=== PATIENT | male | born 1945 | race Caucasian/White ===

== ENCOUNTER 2017-09-19 05:35 | Inpatient (IN) | payer MEDICARE ==
[~2017-09-19] VITALS: Ht 182.9 cm; Wt 85.7 kg
[2017-09-19 05:42] VITALS: BP 178/95
[2017-09-19 06:41] LABS: ABSOLUTE EOSINOPHILS 0.1 thou/uL (0.0-0.7); ABSOLUTE LYMPHOCYTES 1.8 thou/uL (0.8-5.3); ABSOLUTE MONOCYTES 0.8 thou/uL (0.0-1.2); ABSOLUTE NEUTROPHILS 7.8 thou/uL (1.6-8.1); BASOPHILS 0.4 %; EOSINOPHILS 0.7 %; HEMATOCRIT 48.3 % (42.0-52.0); HEMOGLOBIN 16.2 gm/dL (14.0-18.0); LYMPHOCYTES 16.9 %; MCH 31.4 pg (26.0-34.0); MCHC 33.7 g/dL (28.0-37.0); MCV 93.1 fL (80.0-100.0); MONOCYTES 7.6 %; NUCLEATED RBCS 0 /100WBC; PLATELET COUNT* 120 thou/uL (150-400); POLYS 74.4 %; RBC 5.18 mil/uL (4.50-6.00); RDW-CV 15.1 % (10.5-14.5); WBC 10.5 thou/uL (4.0-11.0)
[2017-09-19 06:51] LABS: ANION GAP 10 mmol/L (7-16); BUN 17 mg/dL (7-18); CALCIUM 9.1 mg/dL (8.5-10.1); CHLORIDE 101 mmol/L (98-107); CO2 24 mmol/L (21-32); CREATININE 1.1 mg/dL (0.6-1.3); GLUCOSE 83 mg/dL (70-99); POTASSIUM 4.2 mmol/L (3.5-5.1); SODIUM 135 mmol/L (136-145)
[2017-09-19 06:52] LABS: APTT 27.9 Seconds (25.0-31.3); INR 1.8; PROTIME 17.8 Seconds (9.20-11.50)
[2017-09-19 07:01] LABS: ALBUMIN 3.2 g/dL (3.4-5.0); ALKALINE PHOSPHATASE 75 U/L (46-116); LIPASE 83 U/L (73-393); NT-PRO BRAIN NAT PEPTIDE 264 pg/mL (<300); SGOT 14 U/L (15-37); SGPT 26 U/L (30-65); TOTAL BILIRUBIN 1.4 mg/dL (<0.1-1.0); TOTAL PROTEIN 6.8 g/dL (6.4-8.2); TROPONIN-I LEVEL <0.06 ng/mL (<0.06)
[2017-09-19 07:54] VITALS: BP 142/67
--- NOTE | 2017-09-19 08:37 | EKG ---
[place] [address] ELECTROCARDIOGRAM REPORT Name: ANNETTE NANCE Room: [address] IN [facility].#: [id number] Admission: 09/19/17 Attend Phys: Annette Guardado MD Discharge: Date of : 45 Report #: [id number] THIS REPORT FOR: //name// [facility] ED Test Date: 2017-09-19 Test Time: 05:42:53 Pat Name: ANNETTE NANCE Department: Room: Gender: Freelance Writer: 9 : 1945 Requested By: Gibson Cancino Order Number: [id number] MD: Yayo Lovelace Measurements Intervals [place] Rate: 100 P: 85 [place]: 168 QRS: 269 QRSD: 91 T: 76 QT: 329 QTc: 425 Interpretive Statements Sinus tachycardia Biatrial enlargement, possible Borderline ST depression, diffuse leads Artifact in lead(s) II,III,aVR,aVL,aVF,V1,V2,V3,V4,V5,V6 and baseline wander in lead(s) V2 No previous ECG available for comparison Electronically Signed On 09-19-2017 8:37:34 CDT by Yayo Lovelace [email or web address] <ELECTRONICALLY SIGNED> By: Yayo Lovelace MD, FACC 09/19/17 0837 [id number] Yayo Lovelace MD, FAC /EPI
[2017-09-19] MEDS ORDERED: NEURONTIN600 MG PO (09:56)
[2017-09-19] MEDS ORDERED: CARVEDILOL12.5 MG PO (09:56)
[2017-09-19] MEDS ORDERED: GENERLAC10 GM/15 M PO (09:56)
[2017-09-19] MEDS ORDERED: ASPIR 8181 MG PO (09:57)
[2017-09-19] MEDS ORDERED: VITAMIN D400 UNIT PO (09:58)
[2017-09-19] MEDS ORDERED: SINGULAIR 10 MG10 M1 PO (09:59)
[2017-09-19] MEDS ORDERED: ADVAIR 500-501 EACH INH (09:59)
[2017-09-19] MEDS ORDERED: FOLIC ACID1 MG PO (09:59)
[2017-09-19] MEDS ORDERED: VALIUM5 MG PO (09:59)
[2017-09-19] MEDS ORDERED: ZOCOR20 MG PO (10:00)
[2017-09-19] MEDS ORDERED: LISINOPRIL20 MG PO (10:00)
[2017-09-19] MEDS ORDERED: PROAIR HFA8.5 GM INH (10:01)
[2017-09-19] MEDS ORDERED: PREDNISONE 10 M10 MG PO (10:02)
[2017-09-19] MEDS ORDERED: ALBUTEROL2.5 MG/31 INH (10:02)
[2017-09-19] MEDS ORDERED: IPRATROPIU0.2 MG/1 M INH (10:02)
[2017-09-19 16:00] VITALS: BP 116/66
--- NOTE | 2017-09-19 17:45 | NUR ---
PT UP TO UNIT THIS AFTERNOON. PT UP AD ROJELIO IN ROOM. PT SOA WITH EXERTION. SATS IN UPPER 90S ON RA
[2017-09-19 20:00] VITALS: BP 133/75
[2017-09-19 23:49] VITALS: BP 147/81
--- NOTE | 2017-09-20 05:48 | NUR ---
A&O X4 CALM COOPERITVE. MED/SURG STATUS. RA. ADLIB IN ROOM. SOA REPORTED, BREATHING TREAMENT GIVEN WITH RELIEF NOTED. DENIES PAIN. SEE MAR. SEE CHARTING. VITALS WNL. HOURLY ROUNDING FOR SAFETY.
[2017-09-20 07:50] VITALS: BP 117/87
--- NOTE | 2017-09-20 10:40 | NUR ---
RECEIVED REPORT AND ASSUMED CARE AT 0730. VSS. PT ON RA, UP AD ROJELIO IN ROOM. PT REPORTED PAIN WITH NO SPECIFIC LOCATION, REFUSED ANY PAIN MEDICATION OR RELIEF OPTIONS. ASSESSMENT COMPLETED CHARTED. PT SCHEDULED FOR CXR, DISCUSSED PLAN OF CARE WITH PT, VERBALIZED UNDERSTANDING. PT PREVIOUS IV INFILTRATED, IV D/C. NEW IV STARTED. BED IN LOWEST POSITION. CALL LIGHT WITHIN REACH. WILL CONTINUE TO MONITOR FOR REMAINDER OF THE SHIFT
[2017-09-20 15:34] VITALS: BP 130/70
--- NOTE | 2017-09-20 16:28 | NUR ---
PT IN PLEASANT MOOD TODAY. PT UP AD ROJELIO IN ROOM, ON RA, VSS. PT AMBULATED IN THE HALLWAYS FOR 1 LAP OF THE UNIT IN THE MORNING AND AFTERNOON. UA AND SPUTUM SAMPLES GIVEN AND TAKEN TO LAB. PT DENIES ANY COMPLAINTS OF PAIN. BED IN LOWEST POTSITION AND LOCKED, CALL LIGHT WITHIN REACH. PT PROGRESSING TOWARDS GOALS. WILL CONTINUE TO MONITO FOR THE REMAINDER OF THE SHIFT.
[2017-09-20 19:50] VITALS: BP 138/58
[2017-09-20 21:40] VITALS: BP 132/72
--- NOTE | 2017-09-20 22:14 | NUR ---
RECEIVED PATIENT IN TRANSFER FROM 204 AFTER VERBAL REPORT FROM KYLIE ALLISON. PATIENT ARRIVED AT 2140 BY WHEELCHAIR IN STABLE CONDITION. ALERT AND ORIENTED X 4. UP WITH STEADY GAIT INDEPENDENTLY IN THE ROOM. NOTING AUDIBLE WHEEZING ON ARRIVAL. PATIENT DID REQUEST PRN BREATHING TREATMENT AND RT DID PROVIDE. ORIENTED TO BED CONTROLS, TV REMOTE, PHONE, ROOM AND FLOOR ROUTINES. HS SNACK PROVIDED. CONDITION STABLE. ARRIVAL VITAL SIGNS STABLE. CONTINUE TO MONITOR.
[2017-09-21 00:40] VITALS: BP 122/74
[2017-09-21 04:58] LABS: CALCIUM 8.7 mg/dL (8.5-10.1); CREATININE 1.1 mg/dL (0.6-1.3); POTASSIUM 4.3 mmol/L (3.5-5.1)
[2017-09-21 08:15] VITALS: BP 147/85
--- NOTE | 2017-09-21 11:54 | NUR ---
SW met with pt to complete initial assessment, introduce self, and SW role. Pt hard of hearing, alert and oriented, pleasant. Pt lives home alone and says that his is "very independent" and "stubborn" and when asked about support system, pt said "myself". Pt says that he has a son who lives in the [facility]. Pt does not have any DME, hx of HH or SNF. Pt explained that he is hopeful to dc independent and is aware of potential oxygen need. SW to continue to follow to assist with safe dc planning.
[2017-09-21 16:00] VITALS: BP 165/76
--- NOTE | 2017-09-21 18:51 | NUR ---
ALERT AND ORIENTED X4. UP AD ROJELIO IN ROOM. IV IS PATENT AND SALINE LOCKED. PAIN BEING MANAGED WITH PO MEDICATION. DENIES NAUSEA. TOLERATING DIET. RECIEVING BREATHING TREATMENTS. VSS ON ROOM AIR. HOURLY ROUNDS HAVE BEEN MAINTAINED THROUGHOUT SHIFT. CALL LIGHT IS WITHIN REACH. NURSING WILL CONTINUE TO MONITOR.
[2017-09-21 19:45] VITALS: BP 146/82
--- NOTE | 2017-09-22 00:11 | NUR ---
PT CALLED OUT REPORTED SOB, THIS NURSE AT BEDSIDE, O2 SAT OBTAINED IN HIGH 90'S ON RA; PT REPORTS HE ISN'T BETTER; STATED "THERE ISN'T ANY POINT TO BE IN THIS [facility] IF YOU AREN'T ANY BETTER THAN YOU WERE ON THURSDAY"; WILL REPORT TO HIS PRIMARY RN
[2017-09-22 00:29] VITALS: BP 179/74
--- NOTE | 2017-09-22 02:30 | NUR ---
REASSESSMENT AT BEDSIDE AFTER PATIENT CALLED OUT FOR SHORTNESS OF AIR AT 0011. O2 SAT AT 96%. CONTINUES TO HAVE DIMINISHED LUNG SOUNDS WITH SOME WHEEZING. PATIENT STILL UPSET. STATING LAST RT TREATMENT DIDN'T HELP. PATIENT WORDS ANGRY. ATTEMPTED TO WORK THROUGH ANGER/ANXIETY WITHOUT SUCCESS. CALL TO DR. KEMP AT 0023. UPDATED ON CURRENT STATUS. NEW ORDERS. PRN VALIUM PROVIDED AND STAT EXTRA RT TREATMENT. CXR COMPLETED AT BEDSIDE. 0124 CXR RESULTS WITHOUT ADDITIONAL FINDINGS. STAT RT TREATMENT SOMEWHAT HELPFUL. 0125 PROVIDED BENADRYL FOR ANXIETY/SLEEP. PATIENT SITTING UP BEDSIDE EATING CHIPS. PATIENT HAD HIS HOME MED LIST OUT AND STATED HE WISHED HE WAS GETTING HIS HOME MEDS. REVIEWED LIST AGAINST ORDERED MEDICATIONS. REASSUSRED PATIENT ALL OF HIS HOME MEDS WERE IN FACT ORDERED AND HAD BEEN PROVIDED. 0205 PATIENT IN BED, EYES CLOSED, BREATHING UNLABORED AND APPEARS TO BE SLEEPING WITHOUT DISTRESS. CONTINUE TO MONITOR.
[2017-09-22 09:00] VITALS: BP 170/82
--- NOTE | 2017-09-22 12:07 | NUR ---
Pt now on room air; no supplemental oxygen needed. Pt son possibly to visit today during some time off of work. Pt face sheet indicated pt was homeless but pt lives in [place] and was just driving through to visit his son. SW to continue to follow.
[2017-09-22 16:00] VITALS: BP 155/71
--- NOTE | 2017-09-22 16:10 | NUR ---
PATIENT GIVEN ONE TIME DOSE OF LASIX THIS AM, VOIDING FREQUENTLY. IV REMAINS SL, TID STEROIDS. PRN TYLENOL GIVEN FOR HEADACHE THIS AFTERNOON, PATIENT STATES HE HAD A "SMALL SEIZURE" THAT WOKE HIM FROM HIS NAP. NO STAFF WITNESSED. DR. KIRBY NOTIFIED AND NO NEW ORDERS RECEIVED. IS AND FLUTTER GIVEN PATIENT, PATIENT INSTRUCTED AND UTILZING.
[2017-09-22 19:45] VITALS: BP 132/78
--- NOTE | 2017-09-23 05:03 | NUR ---
PATIENT REMAINS ALERT AND ORIENTED X4 THROUGHOUT SHIFT. HAS BEEN FORGETFUL AT TIMES ABOUT WHEN MEDICATIONS HAVE BEEN ADMINISTERED. VITAL SIGNS STABLE ON ROOM AIR. ANXIOUS AND RESTLESS AT TIMES. ADMINISTERED MEDICATION PER ORDERS AND THEN PATIENT RESTED COMFORTABLY. IV PATENT AND SALINE LOCKED IN THE LEFT AC. OXYGEN HAS BEEN ORDERED BUT PATIENT DECLINES WEARING. HOURLY ROUNDING COMPLETE. REPOSITIONING SELF IN BED. FALL PRECAUTIONS IN PLACE. BED IN LOW POSITION, CALL LIGHT WITHIN REACH. NURSING WILL CONTINUE TO MONITOR.
[2017-09-23 05:35] LABS: CALCIUM 8.7 mg/dL (8.5-10.1); CREATININE 1.1 mg/dL (0.6-1.3); MAGNESIUM 2.1 mg/dL (1.8-2.4); POTASSIUM 4.2 mmol/L (3.5-5.1)
[2017-09-23 08:30] VITALS: BP 160/85
[2017-09-23 16:42] VITALS: BP 187/91
[2017-09-23 16:48] VITALS: BP 187/97
--- NOTE | 2017-09-23 18:23 | NUR ---
PATIENT C/O OF EPISODE OF DIARRHEA THIS AFTERNOON, PATIENT STARTED ON PROBIOTICS AFTER DR. KIRBY NOTIFIED. RT HERE THIS AFTERNOON GIVING PATIENT TREATMENT, INFORMED THIS NURSE THAT PATIENT MORE WHEEZY AND CRACKLES NOTED. DR. KIRBY NOTIFIED AND ORDER FOR CXR AND MRSA NASAL SWAB. SWAB OBTAINED AND CXR RESULTS CALLED TO DR. KIRBY. IV STEROIDS CHANGED BACK TO TID. PATIENT IN BATHROOM THIS EVENING AND FOUND KNEELING BY STAFF. PATIENT STATED HE WAS CHANGING HIS SOCKS AND LOST HIS BALANCE LANDING ON HIS COCCYX. NO INJURY NOTED, DR. KIRBY AWARE AND MADE AWARE OF VITALS POST. FALL RISK PROTOCOL IN PLACE, BED ALARM ON. PATIENTS SON HERE ALL AFTERNOON. PATIENT HOPING TO GO HOME SOON.
[2017-09-23 20:30] VITALS: BP 177/92
--- NOTE | 2017-09-23 21:20 | NUR ---
PATIENT TRANSFERRED TO [facility] DURING TORNADO WARNING PER HOSPITAL POLICY.
--- NOTE | 2017-09-24 05:02 | NUR ---
PATIENT REMAINS ALERT AND ORIENTED X4 THROUGHOUT SHIFT WITH PERIODS OF BEING FORGETFUL. VITAL SIGNS STABLE ON ROOM AIR. IV PATENT IN THE LEFT AC SALINE LOCKED. TRANSFERRING WITH ASSIST OF 1 TO THE RESTROOM. DENIES PAIN AND OR NAUSEA. RESTING COMFORABLY THROUGHOUT NIGHT. HOURLY ROUNDING COMPLETE. FALL PRECAUTIONS IN PLACE. CALL LIGHT WITHIN REACH. NURSING WILL CONTINUE TO MONITOR.
[2017-09-24 08:15] VITALS: BP 175/91
[2017-09-24 15:58] VITALS: BP 162/90
--- NOTE | 2017-09-24 17:54 | NUR ---
ALERT AND ORIENTED X4. WITH STAND BY ASSIST TO BATHROOM. PATIENT HAS BEEN EDUCATED ON FALL RISKS MULTIPLE TIMES AND HAS TOLD NURSE MULTIPLE TIMES THAT HE WILL NOT CALL FOR ASSISTANCE. BED ALARM IS SET WHEN LAYING IN BED, PATIENT SITS ON SIDE OF THE BED AND ALARM IS UNABLE TO BE SET AND PATIENT REFUSES TO GET IN A POSITION TO BE ABLE TO SET THE ALARM. IV IS PATENT AND SALINE LOCKED. DENIES NEED FOR PAIN MEDICATION. DENIES NAUSEA. TOLERATING DIET. VSS ON ROOM AIR. HOURLY ROUNDS HAVE BEEN MAINTAINED THROUGHOUT SHIFT. CALL LIGHT IS WITHIN REACH. FALL RISK BAND AND SOCKS IN PLACE. NURSING WILL CONTINUE TO MONITOR.
[2017-09-24 20:35] VITALS: BP 174/77
[2017-09-24 22:30] VITALS: BP 166/80
--- NOTE | 2017-09-25 05:38 | NUR ---
PATIENT ALERT AND ORIENTED X 4 FORGETFUL AND ANXIOUS AT TIMES. VITALS STABLE. RA. REFUSES TO HAVE THREE SIDE RAILS UP BUT BED ALARM IS IN USE. USES CALL LIGHT APPROPRIATELY AT TIMES. AFTER RECEIVING A BREATHING TREATMENT HE REQUESTED ANOTHER ONE SHORTLY AFTER. HE DID NOT APPEAR TO BE IN ANY RESPIRATORY DISTRESS AND I TOLD HIM THAT IT WASNT TIME YET. HE STATED "I DONT CARE IF I GOT IT FIVE MINUTES AGO I WANT IT AGAIN AND IF I DONT GET IT ILL TEAR THIS HOSPITAL APART." I AGAIN EXPLAINED THAT HE COULDNT HAVE A BREATHING TREATMENT AT THAT TIME AND GAVE HIM HIS SOLUMEDROL WHICH SATSIFIED THE PATIENT MOMENTARILY. PATIENT CALLED OUT FOR TRETAMENT AGAIN. RESPIRATORY CALLED AND STATED HE HAD TO WAIT ATLEAST TWO HOURS. LUNGS CONTINUE TO SOUND WHEEZY. PATIENT REFUSED TO LET ME CHECK HIS OXYGEN STATING " MY SATS ARE ALWAYS FINE." CURRENTLY RESTING COMFORTABLY IN BED. SLEEP STUDY DONE OVERNIGHT. HOURLY ROUNDS. NURSING WILL CONTINUE TO MONITOR.
[2017-09-25] MEDS ORDERED: PREDNISONE 10 M10 MG PO (07:34)
[2017-09-25] MEDS ORDERED: CEFDINIR300 MG PO (07:34)
[2017-09-25] MEDS ORDERED: AZITHROMYCIN 2250 MG PO (07:34)
[2017-09-25] MEDS ORDERED: ALBUTEROL SULFAT2 MG PO (07:34)
[2017-09-25 08:23] VITALS: BP 151/80
[2017-09-25 09:21] VITALS: BP 151/80
--- NOTE | 2017-09-25 10:37 | NUR ---
ASSUMED CARE OF PATIENT AFTER MORNING REPORT. ALERT AND ORIENTED X4. ASSESSMENT COMPLETED AND CHARTED. VSS ON ROOM AIR. PATIENT HAS NO COMPALINTS OF PAIN OR NAUSEA. PATIENTS LUNGS SOUND WHEEZY, THIS IS HIS BASELINE. PATIENT SWITCHED TO ORAL STEROIDS AND ANTIBIOTICS TODAY AND CLEARED FOR DISCHARGE. PATIENT DISCHARGED AT 1035, ALL PERSONAL BELONGINGS, PRESCRIPTIONS AND DISCHARGE INFORMATION SENT WITH PATIENT UPON DISCHARGE.
== END 2017-09-25 10:35 | disposition home or self-care (01) | DRG 871 ==
LOC: M.ERS 05:35 → M.ORTHSURG 06:44 → M.2W 06:44 → M.TBA-ER 06:44 → M.2W 08:04 → M.ORTHSURG 09-20 21:43
PROVIDERS: Family Medicine; ADMIT Internal Medicine
DX: A41.9 Sepsis, unspecified organism (principal); J96.01 Acute respiratory failure with hypoxia; J44.1 Chronic obstructive pulmonary disease with (acute) exacerbation; J44.0 Chronic obstructive pulmonary disease with (acute) lower respiratory infection; J84.9 Interstitial pulmonary disease, unspecified; F17.210 Nicotine dependence, cigarettes, uncomplicated; I10 Essential (primary) hypertension; J20.9 Acute bronchitis, unspecified; I25.10 Atherosclerotic heart disease of native coronary artery without angina pectoris; J84.10 Pulmonary fibrosis, unspecified; I25.2 Old myocardial infarction; Z95.1 Presence of aortocoronary bypass graft; Z86.73 Personal history of transient ischemic attack (TIA), and cerebral infarction without residual deficits; Z85.51 Personal history of malignant neoplasm of bladder; Z79.899 Other long term (current) drug therapy; Z79.82 Long term (current) use of aspirin; Z88.8 Allergy status to other drugs, medicaments and biological substances